=== PATIENT | male | born 1985 | race Two or more races ===

== ENCOUNTER 2018-07-07 18:18 | Emergency (ER) | payer SELFPAY ==
[~2018-07-07] VITALS: Ht 180.3 cm; Wt 122.5 kg
[2018-07-07 18:32] VITALS: BP 154/92
--- NOTE | 2018-07-07 18:57 | Emergency Room Report ---
History of Present Illness General Chief Complaint: Sore Throat Source: Patient Present Illness HPI 33-year-old male presents to the emergency department with 9 out of 10 in severity sore throat that the been progressive over the course of one week. Patient reports intermittent fevers and chills he states that swallowing exacerbates his symptoms and feels like sharp pieces of glass. Patient denies any relieving factors. Patient reports that he is decreased his appetite due to pain with consuming food. He denies immunocompromise denies cough, nasal congestion, rhinorrhea, neck pain or stiffness. Patient has been using over-the -counter medications without relief. Allergies: Coded Allergies: No Known Allergies (Unverified , 07/07/18) Patient History Past Medical History: see triage record Past Surgical History: none Pertinent Family History: none Reviewed Nursing Documentation: PMH: Agreed; PSxH: Agreed Nursing Documentation-PMH Past Medical History: No Stated History Review of Systems All Other Systems: negative except mentioned in HPI Physical Exam Vital Signs Date Time Temp Pulse Resp B/P (MAP) Pulse Ox O2 Delivery O2 Flow Rate FiO2 07/07/18 18:23 98.6 93 18 166/100 96 Room Air Sp02 EP Interpretation: reviewed, normal General Appearance: no apparent distress, alert, GCS 15, non-toxic Head: normocephalic, atraumatic Eyes: bilateral eye normal inspection, bilateral eye PERRL ENT: hearing grossly normal, normal voice, uvula midline, tonsillar swelling, pharyngeal erythema Neck: full range of motion, no meningismus Respiratory: chest non-tender, lungs clear, normal breath sounds, no wheezing, speaking full sentences Cardiovascular #1: regular rate, rhythm Musculoskeletal: back normal, gait/station normal, normal range of motion, non- tender Neurologic: alert, oriented x3, responsive, motor strength/tone normal, sensory intact, speech normal, grossly normal Psychiatric: judgement/insight normal Skin: normal color, no rash, warm/dry, well hydrated Lymphatic: no adenopathy Medical Decision Making PA Attestation Dr. Patrick is my supervising Physician whom patient management has been discussed with. Diagnostic Impression: Primary Impression: Pharyngitis, acute Qualified Codes: J02.0 - Streptococcal pharyngitis ER Course 33-year-old male presents to the emergency department with 9 out of 10 in severity sore throat that the been progressive over the course of one week. Patient reports intermittent fevers and chills he states that swallowing exacerbates his symptoms and feels like sharp pieces of glass. Patient denies any relieving factors. Patient reports that he is decreased his appetite due to pain with consuming food. He denies immunocompromise denies cough, nasal congestion, rhinorrhea, neck pain or stiffness. Patient has been using over-the -counter medications without relief. Ddx considered but are not limited to: pharyngitis, strep, [employer], ludwigs angina, URI Vital signs: are WNL, pt. is afebrile H&PE are most consistent with: pharyngitis presumed strep. ORDERS: None required at this time as the diagnosis is clinical ED INTERVENTIONS: -Decadron 8mg IM -Viscous Lidocaine PO DISCHARGE: At this time pt. is stable for d/c to home. Will provide printed patient care instructions, and any necessary prescriptions. Care plan and follow up instructions have been discussed with the patient prior to discharge. Last Vital Signs Date Time Temp Pulse Resp B/P (MAP) Pulse Ox O2 Delivery O2 Flow Rate FiO2 07/07/18 18:32 98.7 88 19 154/92 99 Room Air Disposition: HOME, SELF-CARE Condition: Stable Scripts No Active Prescriptions or Reported Meds Patient Instructions: Pharyngitis, [id number] Additional Instructions: Take medications as directed. Follow up with a Primary Care Provider in 3-5 days, even if your symptoms have resolved. --Please review list of primary care clinics, if you do not already have a primary care provider Return sooner to ED if new symptoms occur, or current symptoms become worse. - Please note that this Emergency Department Report was dictated using [employer] representative technology software, occasionally this can lead to erroneous entry secondary to interpretation by the dictation equipment. Gissel Castro Jul 07, 2018 18:57
[2018-07-07] MEDS ORDERED: Lidocaine 2% Visc 15ml soln ORAL ONE (19:00)
[2018-07-07] MEDS ORDERED: Dexamethasone 4mg/ml vial IM ONE (19:00)
[2018-07-07 19:10] VITALS: BP 142/86
[2018-07-07] MEDS ORDERED: TYLENOL EXTRA500 MG ORAL (19:12)
[2018-07-07] MEDS ORDERED: LIDOCAINE VISC100 ML ORAL (19:12)
[2018-07-07] MEDS ORDERED: AMOXICILLIN500 MG ORAL (19:12)
== END 2018-07-07 19:30 | disposition home or self-care (01) ==
LOC: EMR 18:59
DX: J02.0 Streptococcal pharyngitis (principal)
CPT/HCPCS: 96372; 99283; J1100

== ENCOUNTER 2018-10-31 20:02 | Emergency (ER) | payer SELFPAY ==
[~2018-10-31] VITALS: Ht 175.3 cm; Wt 113.4 kg
[~2018-10-31 20:02] MED LIST: AMOXICILLIN500 MG ORAL; LIDOCAINE VISC100 ML ORAL; TYLENOL EXTRA500 MG ORAL
[2018-10-31] MEDS ORDERED: NKM (20:17)
--- NOTE | 2018-10-31 20:17 | NUR ---
ED Nurse Note: pt walked in ED stating " my vericose vein popped on left leg" pt left lower leg was wrapped in TRENA wrap. upon removal of the TRENA wrap, no active bleeding noted. denies any pain or numbness. BP 153/83, p 90, t 98.0. Pt is alert x4, ambulatory
--- NOTE | 2018-10-31 20:56 | Emergency Room Report ---
History of Present Illness General Chief Complaint: Lower Extremity Injury Source: Patient Present Illness HPI 33-year-old male history of varicose veins, last night had an episode of bleeding from his varicose vein that shot out, no aggravating relieving factors severity was moderate, lasted a few moments, patient put a bandage over it which since resolved the bleeding. He denies any chest pain shortness of breath , no dyspnea on exertion, no signs of anemia. Allergies: Coded Allergies: No Known Allergies (Unverified , 07/07/18) Patient History Past Medical History: see triage record Reviewed Nursing Documentation: PMH: Agreed; PSxH: Agreed Nursing Documentation-PMH Past Medical History: No Stated History Review of Systems All Other Systems: negative except mentioned in HPI Physical Exam Vital Signs Date Time Temp Pulse Resp B/P (MAP) Pulse Ox O2 Delivery O2 Flow Rate FiO2 10/31/18 20:15 98.2 79 18 164/93 (116) 98 Room Air Sp02 EP Interpretation: reviewed, normal General Appearance: well appearing, no apparent distress, alert Head: normocephalic, atraumatic Eyes: bilateral eye PERRL, bilateral eye EOMI ENT: uvula midline, moist mucus membranes Neck: supple, thyroid normal, supple/symm/no masses Respiratory: lungs clear, no respiratory distress, no retraction, no accessory muscle use Cardiovascular #1: normal peripheral pulses, regular rate, rhythm, no edema, no gallop, no murmur Gastrointestinal: non tender, soft, no guarding, no rebound Musculoskeletal: other - Lower extremity: Varicose vein present, no active extravasation Neurologic: alert, oriented x3 Psychiatric: mood/affect normal Skin: no rash, warm/dry Medical Decision Making Diagnostic Impression: Primary Impression: Varicose vein of leg ER Course Patient shows no signs of anemia, patient states he bled only a little bit, less than a cup. Counseled about how to stop varicose bleeding, a pressure dressing was applied, disposition home with return precautions Counseled to follow-up with a vascular surgeon. Last Vital Signs Date Time Temp Pulse Resp B/P (MAP) Pulse Ox O2 Delivery O2 Flow Rate FiO2 10/31/18 20:15 98.2 79 18 164/93 (116) 98 Room Air Disposition: HOME, SELF-CARE Condition: Stable Referrals: [facility] Patient Instructions: Bleeding Varicose Veins, Varicose Vein Surgery, Varicose Veins Additional Instructions: The patient was provided with discharge instructions, notified to follow-up with a primary care doctor and or specialist in the next 24-48 hours, and to return to the ED if they have worsening of their symptoms. Please note that this report is being documented using [employer] technology. This can lead to erroneous entry secondary to incorrect interpretation by the dictating instrument. Follow-up with a vascular surgeon in 24-48 hours. Serjio Duran MD Oct 31, 2018 20:56
[2018-10-31 20:59] VITALS: BP 153/89
--- NOTE | 2018-10-31 20:59 | NUR ---
ER DISCHARGE NOTE: Patient is cleared to be discharged per ERMD, pt is aox4, on room air, with stable vital signs. pt was given dc instructions, pt was able to verbalize understanding, pt id band and iv site removed without complications. pt is able to ambulate with steady gait. pt took all belongings.
== END 2018-10-31 21:00 | disposition home or self-care (01) ==
LOC: EMR 21:00
DX: I83.899 Varicose veins of unspecified lower extremity with other complications (principal)
CPT/HCPCS: 99281